=== PATIENT | female | born 2000 | race Caucasian/White ===

== ENCOUNTER 2022-05-31 16:36 | Emergency (ER) | payer OTHER, BC ==
[~2022-05-31] VITALS: Ht 170 cm; Wt 70.3 kg
--- NOTE | 2022-05-31 17:02 | ED Head Injury ---
General Chief Complaint: Head/Cervical Problems Stated Complaint: HEAD INJ / PAIN Nursing Triage Note: PT ARRIVED POV FOR WORK COMP. PT STATES THAT SHE WAS WORKING AT [employer] AND WAS TAKING TOTES OUT TO A CAR AND THE TOTE FELL OFF AND HIT ON THE RIGHT SIDE AND BACK OF HEAD. PT HAS A BRUISE ON RIGHT EAR AND [place], N/V, AND DIZZINESS. Source: patient Exam Limitations: no limitations History of Present Illness Date Seen by Provider: May 31, 2022 Time Seen by Provider: 16:56 Initial Comments Patient is a 22-year-old female presents the ED from [facility] for evaluation of a head injury. She states she was working outside when a tote just above her head that contain milk and a frozen lasagna fell hitting the back of her head. She denied loss of conscious. She had a mild headache and dizziness after the head injury. This occurred around 2:45 PM. Patient states the head pain is about 3 out of 10. Denies taking thing for pain. She denies of any obvious contusion. She has some mild tenderness to palpate her scalp. Mild dizziness but denies room spinning. She denies nausea, vomiting, generalized weakness, unilateral muscle pain, visual disturbances, neck pain. She was sent over from [facility] for further evaluation. Denies sensitivity to light, fever, chills, chest pain, shortness of breath or cough. Allergies and Home Medications Patient Home Medication List Home Medication List Reviewed: Yes Review of Systems Review of Systems Constitutional: No chills, No diaphoresis, No malaise, No weakness Eyes: Denies Drainage, Denies Decreased Acuity Ears, Nose, Mouth, Throat: denies ear pain, denies ear discharge Respiratory: No cough Cardiovascular: No chest pain Gastrointestinal: No abdominal pain, No diarrhea, No nausea, No vomiting Genitourinary: No decreased output, No discharge Musculoskeletal: No back pain, No joint pain Skin: No change in color Psychiatric/Neurological: Headache; Denies Numbness; Other (Dizziness) Past Demjtav-Pshxkx-Dtrwfu Hx Patient Social History Tobacco Use?: No Substance use?: No Alcohol Use?: No Physical Exam Vital Signs Vital Signs - First Documented 05/31/22 16:44 Pulse 85 B/P (MAP) 135/90 (105) Pulse Ox 98 O2 Delivery Room Air Capillary Refill : Height, Weight, BMI Height: '" Weight: lbs. oz. kg; 24.00 BMI Method: General Appearance: WD/WN, no apparent distress HEENT: PERRL/EOMI, normal ENT inspection, TMs normal, pharynx normal Neck: non-tender, full range of motion, supple Cardiovascular: regular rate, rhythm, no edema, no gallop, no JVD Respiratory: chest non-tender, lungs clear, normal breath sounds, no respiratory distress, no accessory muscle use Gastrointestinal: normal bowel sounds, non tender, soft, no organomegaly Back: normal inspection, no CVA tenderness Extremities: normal range of motion, non-tender, normal inspection, no pedal edema Psychiatric: alert, oriented x 3 Crainal Nerves: normal hearing, normal speech, PERRL Motor/Sensory: no motor deficit, no sensory deficit, no pronator drift Skin: normal color, warm/dry Mumford Coma Score Best Eye Response: (4) Open Spontaneously Best Verbal Response: (5) Oriented Best Motor Response: (6) Obeys Commands Mumford Total: 15 Progress/Results/Core Measures Results/Orders Vital Signs/I&O 05/31/22 16:44 Pulse 85 B/P (MAP) 135/90 (105) Pulse Ox 98 O2 Delivery Room Air Blood Pressure Mean: 105 Departure Communication (PCP) Patient with a posterior head injury. A tote that was fairly light weight fell hitting the back part of her head. No loss of consciousness, vomiting, focal neural deficits. On exam she has no evidence of contusion on palpation of the occipital scalp. No cervical midline tenderness. Neuro exam unremarkable. GCS 15. Alert and orient x4. Low risk for skull fracture or hemorrhaging. [place] CT head injury trauma rule was considered low risk. CT imaging was held at this time. Discussed these results with patient and she agrees no blood noted in the ears bilateral suggesting basilar skull fracture. Vital signs stable. Discussed potential mild concussion with a headache and dizziness. She has no specific photophobia or worsening head pain. Recommend rest for the rest of the day. If symptoms improve she may return back to work. If not continue monitoring at home and to follow-up your PCP in 2 to 3 days for reevaluation. Tylenol ibuprofen at home. If any worsening symptoms such as head pain, vomiting, change in mental status return back to ED. Impression Primary Impression: Head injury Additional Impression: Mild concussion Disposition: HOME, SELF-CARE Condition: Stable Departure-Patient Inst. Decision time for Depature: 16:59 Referrals: [facility] [place] PHYSICIAN (PCP) Primary Care Physician Patient Instructions: Minor Head Injury Add. Discharge Instructions: May return to work as long as she has no headache, dizziness has improved. Recommend rest at home. If continue having headache and dizziness recommend avoid bright lights, watching TV for long period of time, reading. Recommend brain rest. All discharge instructions reviewed with patient and/or family. Voiced understanding. JOSIE MOORE May 31, 2022 17:02
[2022-05-31 17:17] VITALS: BP 121/82
== END 2022-05-31 17:17 | disposition home or self-care (01) ==
LOC: ER 16:39
DX: S06.0X0A Concussion without loss of consciousness, initial encounter (principal); R40.2410 Glasgow coma scale score 13-15, unspecified time; W20.8XXA Other cause of strike by thrown, projected or falling object, initial encounter; Y92.512 Supermarket, store or market as the place of occurrence of the external cause; Y99.0 Civilian activity done for income or pay
CPT/HCPCS: 99283